=== PATIENT | male | born 1980 | race Caucasian/White ===

== ENCOUNTER 2020-06-05 01:00 | Emergency (ER) | payer OTHER ==
[~2020-06-05] VITALS: Ht 177.8 cm; Wt 79.4 kg
[2020-06-05] MEDS ORDERED: KLOR-CON M2020 MEQ PO (01:44)
[2020-06-05] MEDS ORDERED: STELARA90 MG/1 ML SUBQ (01:44)
[2020-06-05] MEDS ORDERED: FOLIC ACID1 MG PO (01:44)
[2020-06-05] MEDS ORDERED: CALCIUM500 MG PO (01:45)
[2020-06-05] MEDS ORDERED: VALTREX 500 MG500 M1 PO (01:45)
[2020-06-05 01:57] LABS: URINE BILIRUBIN NEGATIVE (Negative); URINE BLOOD 3+ (Negative); URINE CLARITY CLEAR; URINE COLOR YELLOW; URINE GLUCOSE-RANDOM NEGATIVE (Negative); URINE KETONES TRACE (Negative); URINE LEUKOCYTES-REFLEX NEGATIVE (Negative); URINE NITRITE-REFLEX NEGATIVE (Negative); URINE PROTEIN NEGATIVE (Negative)
[2020-06-05 02:08] LABS: ABSOLUTE EOSINOPHILS 0.1 thou/uL (0.0-0.7); ABSOLUTE LYMPHOCYTES 0.4 thou/uL (0.8-5.3); ABSOLUTE MONOCYTES 0.2 thou/uL (0.0-1.2); ABSOLUTE NEUTROPHILS 1.7 thou/uL (1.6-8.1); BASOPHILS 0.5 %; EOSINOPHILS 2.3 %; HEMATOCRIT 42.2 % (42.0-52.0); HEMOGLOBIN 14.8 gm/dL (14.0-18.0); MCH 35.7 pg (26.0-34.0); MCHC 35.1 g/dL (28.0-37.0); MCV 101.6 fL (80.0-100.0); MONOCYTES 6.8 %; MPV 7.9 fl. (7.2-11.1); NUCLEATED RBCS 0 /100WBC; POLYS 72.4 %; RBC 4.15 mil/uL (4.50-6.00); RDW-CV 14.5 % (10.5-14.5); WBC 2.3 thou/uL (4.0-11.0)
[2020-06-05 02:11] LABS: PLATELET COUNT* 27 thou/uL (150-400)
[2020-06-05 02:16] LABS: CALCIUM 8.5 mg/dL (8.5-10.1); CREATININE 1.3 mg/dL (0.6-1.3); INR 1.3; POTASSIUM 4.1 mmol/L (3.5-5.1)
[2020-06-05 02:26] LABS: ALBUMIN 3.2 g/dL (3.4-5.0); MAGNESIUM 2.1 mg/dL (1.8-2.4); TOTAL BILIRUBIN 2.1 mg/dL (<0.1-1.0); TOTAL PROTEIN 6.3 g/dL (6.4-8.2)
[2020-06-05 02:32] LABS: CASTS None Seen /LPF (None Seen); SQUAMOUS 0-3 Few /LPF (0-3)
[2020-06-05 02:33] LABS: AMORPHOUS PHOSPHATES Few /LPF (None Seen); URINE RBC >20 Many /HPF (0-2); URINE WBC-REFLEX 0-5 Rare /HPF (0-5)
[2020-06-05 02:46] LABS: PLATELET ESTIMATE DECREASED
[2020-06-05 03:04] LABS: AMP/METHAMP Negative (Negative); BARBITURATES Negative (Negative); BENZODIAZEPINES Negative (Negative); COCAINE Negative (Negative); METHADONE Negative (Negative); OPIATES Negative (Negative); PCP Negative (Negative); THC Negative (Negative)
[2020-06-05] MEDS ORDERED: FLOMAX0.4 MG PO (04:22)
[2020-06-05] MEDS ORDERED: ZOFRAN ODT4 MG PO (04:22)
[2020-06-05] MEDS ORDERED: OXYCODONE HCL 55 MG PO (04:22)
[2020-06-05 05:00] VITALS: BP 115/68
== END 2020-06-05 05:00 | disposition home or self-care (01) ==
LOC: M.ERS 01:00
PROVIDERS: Emergency Medicine
DX: N13.2 Hydronephrosis with renal and ureteral calculous obstruction (principal); R11.2 Nausea with vomiting, unspecified; Z79.899 Other long term (current) drug therapy

== ENCOUNTER 2020-06-07 16:29 | Inpatient (IN) | payer OTHER ==
[~2020-06-07] VITALS: Ht 177.8 cm; Wt 81.2 kg
[~2020-06-07 16:29] MED LIST: CALCIUM500 MG PO; FLOMAX0.4 MG PO; FOLIC ACID1 MG PO; KLOR-CON M2020 MEQ PO; OXYCODONE HCL 55 MG PO; STELARA90 MG/1 ML SUBQ; VALTREX 500 MG500 M1 PO; ZOFRAN ODT4 MG PO
[2020-06-07 16:42] VITALS: BP 126/75
[2020-06-07 17:19] LABS: ABSOLUTE LYMPHOCYTES 0.5 thou/uL (0.8-5.3); ABSOLUTE MONOCYTES 0.3 thou/uL (0.0-1.2); ABSOLUTE NEUTROPHILS 1.7 thou/uL (1.6-8.1); BASOPHILS 0.3 %; EOSINOPHILS 1.5 %; HEMATOCRIT 40.8 % (42.0-52.0); HEMOGLOBIN 14.4 gm/dL (14.0-18.0); LYMPHOCYTES 18.8 %; MCH 35.5 pg (26.0-34.0); MCHC 35.4 g/dL (28.0-37.0); MCV 100.2 fL (80.0-100.0); MONOCYTES 11.4 %; MPV 8.1 fl. (7.2-11.1); NUCLEATED RBCS 0 /100WBC; RBC 4.07 mil/uL (4.50-6.00); RDW-CV 13.8 % (10.5-14.5); WBC 2.6 thou/uL (4.0-11.0)
[2020-06-07 17:29] LABS: CALCIUM 7.8 mg/dL (8.5-10.1); POTASSIUM 3.9 mmol/L (3.5-5.1)
[2020-06-07 17:31] LABS: CREATININE 2.3 mg/dL (0.6-1.3)
[2020-06-07 17:32] LABS: URINE BILIRUBIN NEGATIVE (Negative); URINE BLOOD NEGATIVE (Negative); URINE CLARITY CLEAR; URINE COLOR YELLOW; URINE GLUCOSE-RANDOM NEGATIVE (Negative); URINE KETONES NEGATIVE (Negative); URINE LEUKOCYTES-REFLEX NEGATIVE (Negative); URINE NITRITE-REFLEX NEGATIVE (Negative); URINE PROTEIN NEGATIVE (Negative); URINE SPECIFIC GRAVITY 1.025 (1.005-1.030); URINE UROBILINOGEN 0.2 E.U./dl (0.2-1.0)
[2020-06-07 17:33] LABS: ALBUMIN 3.1 g/dL (3.4-5.0); TOTAL BILIRUBIN 2.5 mg/dL (<0.1-1.0)
[2020-06-07 17:39] LABS: PLATELET COUNT* 25 thou/uL (150-400)
[2020-06-07 20:18] VITALS: BP 129/65
[2020-06-07 20:45] VITALS: BP 123/66
--- NOTE | 2020-06-07 21:00 | NUR ---
RECEIVED REPORT FROM ER AND PT TO ROOM. GAIT STEADY WITH AMBULATION. C/O RT FLANK PAIN DUE TO KIDNEY STONE. TELEMETRY APPLIED SHOWING SR. SEE ADMISSION HX AND ASSESSMENT. WILL CONT TO MONITOR AND ASSIST NEEDED.
[2020-06-08] VITALS (7 sets, daily range): BP systolic 101–123; BP diastolic 51–72
[2020-06-08 05:14] LABS: HEMOGLOBIN 13.5 gm/dL (14.0-18.0); MCH 35.1 pg (26.0-34.0); MCHC 35.4 g/dL (28.0-37.0); MCV 99.2 fL (80.0-100.0); MPV 7.8 fl. (7.2-11.1); RBC 3.83 mil/uL (4.50-6.00); RDW-CV 14.1 % (10.5-14.5)
[2020-06-08 05:22] LABS: WBC 1.6 thou/uL (4.0-11.0)
[2020-06-08 05:27] LABS: CALCIUM 7.3 mg/dL (8.5-10.1); CREATININE 2.2 mg/dL (0.6-1.3)
--- NOTE | 2020-06-08 06:30 | NUR ---
SLEPT WELL TONIGHT. C/O RT FLANK PAIN WITH IV PAIN MEDS GIVEN AND EFFECTIVE. URINE STRAINED WITHOUT SEDIMENT OR STONES. TELEMETRY SHOWING SR. NO CHANGE IN ASSESSMENT. HS GOALS OF REST AND SAFETY ACHIEVED. HOURLY ROUNDING OBSERVED.
--- NOTE | 2020-06-08 17:58 | NUR ---
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 CONTINUES TO REPORT HAVING RIGHT ABD/FLANK PAIN - GIVEN IV PAIN MEDS PER ORDERS DURING SHIFT TO ASSIST WITH PAIN CONTROL- REPORTING PARTIAL RELIEF. ALSO, HAVING COMPLAINTS OF NAUSEA EARLIER GIVEN IV ZOFRAN REPORTING PARITIAL RELIEF. IV FLUIDS INFUSING. URINE STRAINED DURING SHIFT, NO STONES FOUND. PATIENT TRANSFERED VIA BED TO PRE-OP AREA FOR PROCEDURE - SIGNIFICANT OTHER AT BEDSIDE.
--- NOTE | 2020-06-08 21:00 | NUR ---
PATIENT RETURNED TO ROOM POST-OP BY BED IN STABLE CONDITION. ROOM AIR. VITAL SIGNS STABLE. NO PAIN OR NAUSEA. VERY ALERT. ICE CHIPS AND FLUIDS PROVIDED. POST-OP EDUCATION PROVIDED. CONTINUE TO MONITOR.
[2020-06-09 00:02] VITALS: BP 100/61
--- NOTE | 2020-06-09 04:06 | NUR ---
PATIENT HAS REMAINED ALERT AND ORIENTED X 4 THROUGHOUT THE SHIFT AND RESTING QUIETLY ON HOURLY ROUNDS. STOOD AT BEDSIDE X 2 POST-OP WITH LARGE AMOUNT URINE OUTPUT. COLOR RED. MEDICATED X 1 FOR PAIN TO GOOD EFEFCT. VITAL SIGNS STABLE. SINUS BRADE TO SR ON THE MONITOR. HAS TOLERATED DIET WITHOUT NAUSEA. HOPES TO GO HOME TODAY. CONTINUE TO MONITOR.
[2020-06-09 04:31] VITALS: BP 103/62
[2020-06-09 05:50] LABS: CALCIUM 7.4 mg/dL (8.5-10.1); CREATININE 1.9 mg/dL (0.6-1.3); HEMATOCRIT 39.7 % (42.0-52.0); HEMOGLOBIN 13.6 gm/dL (14.0-18.0); MCHC 34.4 g/dL (28.0-37.0); MCV 101.6 fL (80.0-100.0); POTASSIUM 4.9 mmol/L (3.5-5.1); RBC 3.9 mil/uL (4.50-6.00)
[2020-06-09 05:59] LABS: WBC 1.3 thou/uL (4.0-11.0)
[2020-06-09 08:00] VITALS: BP 125/68
[2020-06-09] MEDS ORDERED: HYDROCODON-ACE1 EAC7 PO (09:08)
[2020-06-09] MEDS ORDERED: CEFDINIR300 MG PO (09:08)
--- NOTE | 2020-06-09 09:40 | EKG ---
[place] [address] ELECTROCARDIOGRAM REPORT Name: JERE MARCH Room: [address] ADM IN ..#: [id number] Admission: 06/07/20 Attend Phys: Jeff Vargas Discharge: Date of : 76 Date of Service: 06/07/20 1659 Report #: [id number] THIS REPORT FOR: //name// [facility] ED Test Date: 2020-06-07 Test Time: 16:59:34 Pat Name: JERE MARCH Department: Room: [facility] Gender: M [employer] Therapist: RHIANNON : 1980 Requested By: Zoran Wilks Order Number: [id number] MD: Audie Rosales Measurements Intervals [place] Rate: 68 P: 19 CO: 137 QRS: 40 QRSD: 106 T: 39 QT: 388 QTc: 413 Interpretive Statements Sinus rhythm Baseline wander in lead(s) III No previous ECG available for comparison Electronically Signed On 06-09-2020 9:40:06 CDT by Audie Rosales [email or web address] <ELECTRONICALLY SIGNED> By: Audie Rosales MD, [facility] 06/09/20 0940 1659 1659 Audie Rosales MD, [facility] /EPI
[2020-06-09 10:20] VITALS: BP 125/68
[2020-06-09] MEDS ORDERED: OXYBUTYNIN 5 MG5 M2 PO (10:38)
[2020-06-09] MEDS ORDERED: OXYCODONE HCL 55 MG PO (10:39)
[2020-06-09 11:45] VITALS: BP 107/57
--- NOTE | 2020-06-10 11:11 | EKG ---
[place] [address] ELECTROCARDIOGRAM REPORT Name: JERE MARCH Room: [address] IN .R.#: [id number] Admission: 06/07/20 Attend Phys: Jeff Vargas Discharge: 06/09/20 Date of : 76 Date of Service: 06/08/20 1654 Report #: [id number] THIS REPORT FOR: //name// [facility] Test Date: 2020-06-08 Test Time: 16:54:11 Pat Name: JERE MARCH Department: Room: [address] Gender: M [employer] Manager: UNKNOWN : 1980 Requested By: Husam Gallegos Order Number: [id number] Reading MD: Audie Rosales Measurements Intervals [place] Rate: 71 P: 24 AK: 138 QRS: 28 QRSD: 111 T: 32 QT: 413 QTc: 449 Interpretive Statements Sinus rhythm Low voltage, precordial leads Compared to ECG 06/07/2020 16:59:34 Low QRS voltage now present Electronically Signed On 06-10-2020 11:11:38 CDT by Audie Rosales [email or web address] <ELECTRONICALLY SIGNED> By: Audie Rosales MD, FACC 06/10/20 1111 1654 1654 Audie Rosales MD, [facility] /EPI
== END 2020-06-09 12:10 | disposition home or self-care (01) | DRG 660 ==
LOC: M.ERS 16:29 → M.2W 18:08 → M.TBA-ER 18:08 → M.2W 21:04
PROVIDERS: Family Medicine; Urology; ADMIT Internal Medicine; ATTEND Internal Medicine
DX: N13.2 Hydronephrosis with renal and ureteral calculous obstruction (principal); D61.818 Other pancytopenia; R18.8 Other ascites; N17.0 Acute kidney failure with tubular necrosis; D69.59 Other secondary thrombocytopenia; K74.60 Unspecified cirrhosis of liver; K72.10 Chronic hepatic failure without coma; D72.819 Decreased white blood cell count, unspecified; D69.6 Thrombocytopenia, unspecified; Z20.822 Contact with and (suspected) exposure to COVID-19; Z79.899 Other long term (current) drug therapy